=== PATIENT | male | born 1950 | race Caucasian/White ===

== ENCOUNTER → 2021-09-08 11:12 | Outpatient (CLI) | payer MEDICARE, OTHER, SELFPAY ==
--- NOTE | 2021-09-08 11:18 | DI.MRI.S_ITS ---
PROCEDURE: MR LUMBAR SPINE WO/W CON INDICATIONS: Radiculopathy, lumbar region TECHNIQUE: Noncontrast sagittal T1 spin echo and T2 fast echo, sagittal STIR, axial T1 and T2 fast spin echo through the lumbar spine. In cases with scoliosis, additional coronal T2 fast spin echo may be performed. COMPARISON: No priors are currently showing as available for comparison. FINDINGS: Image quality: Excellent. Alignment and Curvature: There is mild leftward curvature of the lumbar spine with apex at L4. There is 1 mm retrolisthesis of L1 on L2, L3 on L4, L5 on S1, 3 mm L4 on L5. Bone Marrow: Marrow is of normal overall signal. Moderate reactive endplate changes are present at L4-5, mild L3-4, L5-S1. No acute vertebral body compression fractures. Spinal Cord: Conus medullaris terminates at the L2 level. Visualized cord demonstrates normal signal and size. Paraspinous Soft Tissues: No paravertebral masses. Discs: Multilevel moderate to severe disc desiccation is present. L1-L2: Mild disc bulge with minimal canal narrowing. Mild left foraminal narrowing with facet and ligamentum flavum hypertrophy. L2-L3: Minimal disc bulge with mild spinal stenosis. Minimal left foraminal narrowing with facet and ligamentum flavum hypertrophy. L3-L4: Mild disc bulge with moderate spinal stenosis. Moderate bilateral foraminal narrowing with facet and ligamentum flavum hypertrophy as well as epidural lipomatosis. L4-L5: Mild disc bulge with severe spinal stenosis and canal compression. Severe right foraminal narrowing with nerve root compression. Facet and ligamentum flavum hypertrophy are present. L5-S1: Minimal disc bulge without spinal stenosis. Moderate bilateral foraminal narrowing with facet and ligamentum flavum hypertrophy. IMPRESSION: Multilevel disc bulges. Multilevel spinal stenosis most severe at L4-5 demonstrating severe stenosis and canal compression secondary to facet/ligamentum flavum arthropathy as well as epidural lipomatosis. Retrolisthesis is also present. Multilevel foraminal narrowing most severe at L4-5 with facet/ligamentum flavum arthropathy. Dictated by: Manuela Farmer M.D. on 09/10/2021 at 15:28 Approved by: Manuela Farmer M.D. on 09/10/2021 at 15:35
== END ==
PROVIDERS: PCP Family Medicine; Referring Provider Physician Assistant; Visit Provider Physician Assistant
DX: M51.16 Intervertebral disc disorders with radiculopathy, lumbar region (principal); M47.26 Other spondylosis with radiculopathy, lumbar region; M48.061 Spinal stenosis, lumbar region without neurogenic claudication
CPT/HCPCS: 72158; A9579